=== PATIENT | male | born 1960 | race Caucasian/White ===

== ENCOUNTER → 2017-07-15 | Day surgery (SDC) | payer BC | LOC: MSO 08:18 | DX: Z12.11 Encounter for screening for malignant neoplasm of colon (principal); Z86.010 Personal history of colon polyps; I10 Essential (primary) hypertension; E11.9 Type 2 diabetes mellitus without complications | CPT/HCPCS: 00812; J2704; J7030 ==

== ENCOUNTER 2018-05-08 06:19 | Inpatient (IN) | payer BC ==
[2018-05-08] VITALS (9 sets, daily range): BP systolic 142–172; BP diastolic 81–97
[~2018-05-08] VITALS: Ht 180.3 cm; Wt 102.1 kg
[2018-05-08] MEDS ORDERED: METOPROLOL SUC100 M1 PO (06:36)
[2018-05-08] MEDS ORDERED: POTASSIUM CHLO20 ME4 PO (06:36)
[2018-05-08] MEDS ORDERED: LISINOPRIL40 MG PO (06:37)
[2018-05-08] MEDS ORDERED: AMLODIPINE BESYL5 MG PO (06:37)
[2018-05-08] MEDS ORDERED: HCTZ 25MG25 MG PO (06:37)
[2018-05-08] MEDS ORDERED: CENTRUM CHEWAB1 EAC2 PO (06:38)
[2018-05-08 06:53] LABS: EOS % 0.7 % (0.0-4.0); HEMATOCRIT 44.4 % (42.0-52.0); HEMOGLOBIN 15.9 g/dL (13.5-18.0); LYMPH# 1.9 (1.50-4.00); MEAN CELL VOLUME 91 fl (78-100); MEAN CORPUSCULAR HEMOGLOBIN 33 pg (27-31); MEAN CORPUSCULAR HGB CONC 36 g/dL (33-37); MEAN PLATELET VOLUME 9.1 fl (7.4-10.4); MONO # 0.5 (0.20-0.80); NEU # 1.9 (1.40-6.50); PLATELET COUNT 140 K/mm3 (130-400); RED BLOOD COUNT 4.86 M/mm3 (4.20-5.60); RED CELL DISTRIBUTION WIDTH 11.6 % (11.5-14.5); WHITE BLOOD COUNT 4.4 K/mm3 (4.8-10.8)
[2018-05-08 07:00] LABS: ALBUMIN 4.2 g/dL (3.5-5.0); CALCIUM 9.1 mg/dL (8.4-10.2); POTASSIUM 3.6 mmol/L (3.6-5.0); TOTAL BILIRUBIN 0.8 mg/dL (0.2-1.3); TOTAL PROTEIN 7.1 g/dL (6.3-8.2)
[2018-05-08 07:06] LABS: TROPONIN-I < 0.03 ng/mL (0.00-0.06)
[2018-05-08 07:22] LABS: CKMB ISOENZYME 2.3 ng/mL (0.6-3.5)
[2018-05-08 11:50] LABS: URINE APPEARANCE CLEAR; URINE BILIRUBIN NEGATIVE (NEGATIVE); URINE BLOOD NEGATIVE (NEGATIVE); URINE COLOR YELLOW; URINE GLUCOSE NEGATIVE (NEGATIVE); URINE KETONE NEGATIVE (NEGATIVE); URINE LEUKOCYTE ESTERASE NEGATIVE (NEGATIVE); URINE NITRATE NEGATIVE (NEGATIVE); URINE PROTEIN(semi-quant) 1+ mg/dL (NEGATIVE); URINE UROBILINOGEN NORMAL (NORMAL); URINE WBC 0-1 /hpf (0-3)
[2018-05-09 01:28] VITALS: BP 151/95
[2018-05-09 03:36] VITALS: BP 158/92
[2018-05-09 04:45] VITALS: BP 168/99
[2018-05-09 06:31] VITALS: BP 136/86
[2018-05-09 07:07] LABS: EOS # 0.1 (0.04-0.40); HEMOGLOBIN 14.9 g/dL (13.5-18.0); LYMPH# 1.4 (1.50-4.00); MEAN CELL VOLUME 94 fl (78-100); MEAN CORPUSCULAR HEMOGLOBIN 33 pg (27-31); MEAN CORPUSCULAR HGB CONC 35 g/dL (33-37); MEAN PLATELET VOLUME 9.5 fl (7.4-10.4); MONO # 0.5 (0.20-0.80); NEU # 2.1 (1.40-6.50); PLATELET COUNT 126 K/mm3 (130-400); RED BLOOD COUNT 4.56 M/mm3 (4.20-5.60); RED CELL DISTRIBUTION WIDTH 11.6 % (11.5-14.5); WHITE BLOOD COUNT 4.1 K/mm3 (4.8-10.8)
[2018-05-09 07:32] LABS: CALCIUM 8.3 mg/dL (8.4-10.2); POTASSIUM 3.9 mmol/L (3.6-5.0)
[2018-05-09 12:50] VITALS: BP 141/87
[2018-05-09] MEDS ORDERED: METOPROLOL SUC100 M1 PO (13:34)
[2018-05-09] MEDS ORDERED: HCTZ 25MG25 MG PO (13:35)
[2018-05-09] MEDS ORDERED: SEROQUEL 2525 MG/TAB PO (13:35)
[2018-05-09] MEDS ORDERED: EFFER-K20 MEQ PO (13:36)
[2018-05-09] MEDS ORDERED: LYRICA75 MG PO (13:37)
[2018-05-09 15:00] VITALS: BP 129/78
[2018-05-09] MEDS ORDERED: KLONOPIN 0.5MG0.5 MG PO (15:07)
== END 2018-05-09 15:00 | disposition home or self-care (01) | DRG 896 ==
LOC: ED 06:19 → MED/SURG 09:21 → ED 09:21 → MED/SURG 05-09 15:00
PROVIDERS: Physician Assistant; ADMIT Nurse Practitioner Primary Care
DX: F10.239 Alcohol dependence with withdrawal, unspecified (principal); K85.90 Acute pancreatitis without necrosis or infection, unspecified; Y90.0 Blood alcohol level of less than 20 mg/100 ml; I10 Essential (primary) hypertension; F41.9 Anxiety disorder, unspecified; E86.0 Dehydration
CPT/HCPCS: C9113; J1650; J2060; J3411; J3475; J3490; J7030; Q9967